=== PATIENT | male | born 1980 | race Two or more races ===

== ENCOUNTER 2020-08-07 23:32 | Emergency (ER) | payer MEDICAID ==
[~2020-08-07] VITALS: Ht 172.7 cm; Wt 81.6 kg
[2020-08-08 02:27] VITALS: BP 128/81
== END 2020-08-08 02:55 | disposition home or self-care (01) ==
LOC: ER 23:32
DX: S39.012A Strain of muscle, fascia and tendon of lower back, initial encounter (principal); S33.5XXA Sprain of ligaments of lumbar spine, initial encounter; M62.830 Muscle spasm of back; X50.9XXA Other and unspecified overexertion or strenuous movements or postures, initial encounter; Y93.89 Activity, other specified; Y92.89 Other specified places as the place of occurrence of the external cause; Y99.8 Other external cause status
CPT/HCPCS: 72100; A4565